=== PATIENT | female | born 1995 | race Two or more races ===

== ENCOUNTER 2016-11-18 17:24 | Emergency (ER) | payer MEDICAID ==
[2016-11-18 17:40] VITALS: TEMP 98.2
[2016-11-18 18:13] LABS: COLOR YELLOW; LEUKOCYTE ESTERASE,URINE 3+ (NEGATIVE); NITRITE,URINE NEGATIVE (NEGATIVE)
[2016-11-18 18:46] LABS: BACTERIA 1+ /hpf (NONE SEEN); MUCUS TRACE /lpf (NONE-1+); RBC,URINE 15-25 /hpf (0-3); WBC,URINE 50-182 /hpf (0-3)
--- NOTE | 2016-11-18 19:22 | EDPHY ---
H & P Time Seen by Provider: 11/18/16 18:16 HPI/ROS: CHIEF COMPLAINT: Abdominal pain, dysuria HISTORY OF PRESENT ILLNESS: 21-year-old female presents to the emergency department with abdominal pain that began this afternoon. The patient has had some dysuria, urgency and frequency with urination. The patient has had urinary tract infections in the past. No diarrhea. No fevers or chills. Last urinary tract infection was a few years ago. Her last menstrual period was 2 weeks ago and she denies . She denies chest pain or difficulty breathing. REVIEW OF SYSTEMS: Constitutional: No fever, no chills. Eyes: No double or blurry vision. ENT: No sore throat. Respiratory: No cough, no shortness of breath. Cardiac: No chest pain. Gastrointestinal: Abdominal pain as above. No vomiting or diarrhea. Genitourinary: dysuria. Musculoskeletal: No neck or back pain. Skin: No rashes. Neurological: No headache. Past Medical/Surgical History: Negative Social History: Smoking Status: Never smoked Physical Exam: General Appearance: Alert, no distress. Afebrile and nontoxic-appearing. Eyes: Pupils equal and round. Extraocular motions are all intact. ENT: Mouth: Mucous membranes moist. Respiratory: No wheezing, rhonchi, or rales, lungs are clear to auscultation. Cardiovascular: Regular rate and rhythm. Gastrointestinal: Abdomen is soft and nontender, no masses, no rebound or guarding, bowel sounds normal. No CVA tenderness bilaterally. Neurological: Alert and oriented x 3, cranial nerves II through XII grossly intact Skin: Warm and dry, no rashes. Musculoskeletal: Nontender to palpate along the cervical, thoracic or lumbar spine. Neck is supple. Extremities: Full range of motion and no peripheral edema. Psychiatric: Patient is oriented X 3, there is no agitation. Constitutional: Initial Vital Signs Temperature (C) 36.8 C 11/18/16 17:38 Heart Rate 95 11/18/16 17:38 Respiratory Rate 18 11/18/16 17:38 Blood Pressure 116/85 H 11/18/16 17:38 O2 Sat (%) 98 11/18/16 17:38 O2 Delivery Mode Room Air Allergies/Adverse Reactions: No Known Allergies Allergy (Verified 11/18/16 17:37) Home Medications: Medication Instructions Recorded Cephalexin [Keflex] 500 mg PO QID #28 cap 11/18/16 Lutera-28 Tablet 11/18/16 Phenazopyridine HCl [Pyridium] 200 mg PO Q8PRN PRN #6 tab 11/18/16 Medical Decision Making ED Course/Re-evaluation: 21-year-old female presents to the emergency department with abdominal pain and dysuria. Clinically I think this patient has urinary tract infection. Her urine cultures pending. She will be started on Keflex 500 mg four times daily for 1 week and was also given prescription for Pyridium. I do not think this patient requires IV antibiotics. She will be discharged home. She will call for the results of her urine culture in 48 hours. She was instructed to return if she developed back pain, fever, vomiting, or if she felt worse in any way. She was comfortable with this plan. Differential Diagnosis: Including but not limited to urinary tract infection, pyelonephritis, kidney stone, acute appendicitis - Data Points Laboratory Results: 11/18/16 11/18/16 18:00 16:40 Urine Color YELLOW Urine Appearance MODERATELY TURBID Urine pH 5.0 (5.0-7.5) Ur Specific [place] 1.008 (1.002-1.030) Urine Protein 2+ H (NEGATIVE) Urine Ketones NEGATIVE (NEGATIVE) Urine Blood 3+ H (NEGATIVE) Urine Nitrate NEGATIVE (NEGATIVE) Urine Bilirubin NEGATIVE (NEGATIVE) Urine Urobilinogen NEGATIVE EU EU (0.2-1.0) Ur Leukocyte Esterase 3+ H (NEGATIVE) Urine RBC 15-25 /hpf H /hpf (0-3) Urine WBC 50-182 /hpf H /hpf (0-3) Ur Epithelial Cells TRACE /lpf /lpf (NONE-1+) Urine Bacteria 1+ /hpf H /hpf (NONE SEEN) Urine Mucus TRACE /lpf /lpf (NONE-1+) Ur Culture Indicated? INDICATED H (NI) Urine Glucose NEGATIVE (NEGATIVE) Urine Test NEGATIVE Medications Given: Discontinued Medications Cephalexin HCl (Keflex) 500 mg PO EDNOW ONE PRN Reason: Protocol Stop: 11/18/16 19:25 Last Admin: 11/18/16 19:28 Dose: 500 mg Phenazopyridine HCl (Pyridium) 200 mg PO EDNOW ONE Stop: 11/18/16 19:25 Last Admin: 11/18/16 19:28 Dose: 200 mg Departure - Departure Disposition: Home, Routine, Self-Care Clinical Impression: Urinary tract infection Qualifiers: Urinary tract infection type: acute cystitis Hematuria presence: without hematuria Qualified Code(s): N30.00 - Acute cystitis without hematuria Condition: Good Instructions: Urinary Tract Infection in Women (ED) Additional Instructions: Keflex 500 mg 4 times daily for 1 week to recheck. Call [phone] for the results of your urine culture in 48 hours. Referrals: Yulia Amos PA [Primary Care Provider] - As per Instructions Prescriptions: Cephalexin [Keflex] 500 mg PO QID #28 cap Phenazopyridine HCl [Pyridium] 200 mg PO Q8PRN PRN #6 tab PRN Reason: P.r.n. dysuria
[2016-11-18] MEDS ORDERED: CEPHALEXIN 500 MG CAP PO ONE ×2 (19:24→19:25)
[2016-11-18] MEDS ORDERED: PHENAZOPYRIDINE HCL 200 MG TAB PO ONE (19:24)
[2016-11-18] MEDS ORDERED: PHENAZOPYRIDINE HCL 200 MG TAB ONE (19:25)
[2016-11-18 19:44] VITALS: BP 112/62; PULSE 84; RESP 16; O2SAT 96
== END 2016-11-18 19:43 | disposition home or self-care (01) ==
DX: N30.00 Acute cystitis without hematuria (principal); B96.20 Unspecified Escherichia coli [E. coli] as the cause of diseases classified elsewhere

== ENCOUNTER 2017-03-30 20:41 | Emergency (ER) | payer MEDICAID ==
[2017-03-30 20:46] VITALS: RESP 16; O2SAT 97
[2017-03-30] MEDS ORDERED: NS 1,000 ML IV ONE (21:02)
[2017-03-30] MEDS ORDERED: PROMETHAZINE HCL 25 MG/ML INJ IVP ONE (21:02)
--- NOTE | 2017-03-30 21:06 | EDPHY ---
H & P Stated Complaint: N/V, dizzy, sudden onset, prior Hx without Dx Time Seen by Provider: 03/30/17 21:02 HPI/ROS: HPI: This is a 21-year-old female who presents with Chief Complaint: N/V, dizzy, sudden onset, prior Hx without Dx Location: Body Quality: Nausea Duration: 15 minutes prior to arrival Signs and Symptoms: No fever, no body aches, no burning with urination, + lower abdominal pressure, + urinary frequency, no vaginal bleeding, no vaginal discharge, no neck stiffness, no headache, no abdominal pain, no diarrhea Timing: Sudden Severity: Moderate Context: Patient presents with sudden onset of nausea, 1 episode of vomiting and feeling dizzy. She denies the room spinning. She was sitting on the couch when the episode occurred. After further questioning she notes that she has some urinary hesitancy and frequency that started today. She is and is sexually active. She denies any vaginal discharge/bleeding. Last menstrual period was recent. She was eating and drinking well today. No family members are sick. A similar occurrence occurred recently she was seen in this ER and diagnosed with a urinary tract infection. Modifying Factors: Has not tried anything for the symptoms Comment: ROS: Constitutional: No fever, no chills, no weight loss Eyes: No blurred vision Respiratory: No shortness of breath, no cough Cardiovascular: No chest pain Gastrointestinal: + nausea, + vomiting no diarrhea Genitourinary: No dysuria Extremities: No myalgias Neurologic: No weakness, no numbness Skin: No rashes Hematologic: No bruising, no bleeding CONSTITUTIONAL: Tearful anxious well-appearing female, awake and alert , no obvious distress HEENT: Atraumatic and normocephalic, PERRL, EOMI. Tympanic membranes clear. Oropharynx clear, no exudate and moist pink mucosa. Airway patent. No lymphadenopathy. No meningismus. Cardiovascular: Normal S1/S2, tachycardia, regular rhythm, without murmur rub or gallop. PULMONARY/CHEST: Symmetrical and nontender. Clear to auscultation bilaterally. Good air movement. No accessory muscle usage. ABDOMEN: Soft, nondistended, nontender, no rebound, no guarding, no peritoneal signs, no masses or organomegaly. No CVAT. EXTREMITIES: 2/2 pulses, no deformities, no clubbing, no cyanosis or edema. NEUROLOGICAL: no focal neuro deficits. GCS 15. SKIN: Warm and dry, no erythema. no rash. Good capillary refill. Source: Patient Exam Limitations: No limitations - Personal History LMP (Females 10-55): 1-7 Days Ago Current Tetanus/Diphtheria Vaccine: Unsure - Medical/Surgical History Hx Asthma: No Hx Chronic Respiratory Disease: No Hx Diabetes: No Hx Cardiac Disease: No Hx Renal Disease: No Hx Cirrhosis: No Hx Alcoholism: No Hx HIV/AIDS: No Hx Splenectomy or Spleen Trauma: No Other PMH: PMHx: denies. PSHx: denies - Social History Smoking Status: Never smoked Additional Social History: . Constitutional: Initial Vital Signs Temperature (C) 37.4 C 03/30/17 20:43 Heart Rate 105 H 03/30/17 20:43 Respiratory Rate 16 03/30/17 20:43 Blood Pressure 127/80 H 03/30/17 20:43 O2 Sat (%) 97 03/30/17 20:43 O2 Delivery Mode Room Air Allergies/Adverse Reactions: No Known Allergies Allergy (Verified 11/18/16 17:37) Home Medications: Medication Instructions Recorded Lutera-28 Tablet 11/18/16 Medical Decision Making - Diagnostics Imaging Results: Imaging Impressions Abdomen Ultrasound 03/30/17 21:09 Impression: 1. No cholelithiasis, biliary dilation, hydronephrosis or free fluid. 2. Minimal hepatic steatosis. Findings discussed with Emergency Department physician sales and marketing assistant, Cora Hoyt at 03/30/2017 22:22. ED Course/Re-evaluation: Labs, urinalysis, IV fluids, IV medication, RUQ US ordered Abdominal exam is nonfocal and benign. Called by Radiology and ultrasound does not show cholecystitis, cholelithiasis, pancreatitis. UA is consistent with contamination; will send for urine culture due to symptoms ; discussed starting antibiotics prophylactically versus waiting for urine culture results. Patient requests to hold off on starting antibiotics. 2225: Re-evaluated patient and complete resolution of nausea and dizziness. Discussed this plan with the patient and she is agreeable and requesting to go home. Differential Diagnosis: Dizziness including but not limited to peripheral and central causes of vertigo , orthostatic causes including dehydration, and blood loss. Abdominal pain including but not limited to appendicitis, cholecystitis, gastritis, kidney stone and urinary tract infection. - Data Points Laboratory Results: Laboratory Results 03/30/17 21:00 03/30/17 21:00 03/30/17 03/30/17 03/30/17 21:05 21:00 21:00 WBC RBC Hgb Hct MCV MCH MCHC RDW Plt Count MPV Neut % (Auto) Lymph % (Auto) [place] % (Auto) Eos % (Auto) Baso % (Auto) Nucleat RBC Rel Count Absolute Neuts (auto) Absolute Lymphs (auto) Absolute Monos (auto) Absolute Eos (auto) Absolute Basos (auto) Absolute Nucleated RBC Immature Gran % Immature Gran # Sodium 139 mEq/L mEq/L (134-144) Potassium 3.9 mEq/L mEq/L (3.5-5.2) Chloride 105 mEq/L mEq/L (97-110) Carbon Dioxide 22 mEq/l mEq/l (22-31) Anion Gap 12 mEq/L mEq/L (8-16) BUN 12 mg/dL mg/dL (7-23) Creatinine 0.8 mg/dL mg/dL (0.6-1.0) Estimated GFR > 60 Glucose 76 mg/dL mg/dL (70-100) Calcium 10.4 mg/dL mg/dL (8.5-10.4) Total Bilirubin 0.4 mg/dL mg/dL (0.1-1.4) Conjugated Bilirubin 0.2 mg/dL mg/dL (0.0-0.5) Unconjugated Bilirubin 0.2 mg/dL mg/dL (0.0-1.1) AST 25 IU/L IU/L (14-46) ALT 28 IU/L IU/L (9-52) Alkaline Phosphatase 61 IU/L IU/L (38-126) Total Protein 8.1 g/dL g/dL (6.3-8.2) Albumin 4.5 g/dL g/dL (3.5-5.0) Lipase 97 IU/L IU/L (23-300) Beta HCG, Qual NEGATIVE Urine Color YELLOW Urine Appearance CLEAR Urine pH 7.0 (5.0-7.5) Ur Specific [place] 1.017 (1.002-1.030) Urine Protein 1+ H (NEGATIVE) Urine Ketones NEGATIVE (NEGATIVE) Urine Blood 2+ H (NEGATIVE) Urine Nitrate NEGATIVE (NEGATIVE) Urine Bilirubin NEGATIVE (NEGATIVE) Urine Urobilinogen NEGATIVE EU EU (0.2-1.0) Ur Leukocyte Esterase NEGATIVE (NEGATIVE) Urine RBC 5-10 /hpf H /hpf (0-3) Urine WBC 1-3 /hpf /hpf (0-3) Ur Epithelial Cells TRACE /lpf /lpf (NONE-1+) Hyaline Casts 1-5 /lpf /lpf (0-1) Urine Mucus TRACE /lpf /lpf (NONE-1+) Urine Glucose NEGATIVE (NEGATIVE) 03/30/17 21:00 WBC 10.89 10^3/uL H 10^3/uL (3.80-9.50) RBC 5.15 10^6/uL 10^6/uL (4.18-5.33) Hgb 15.7 g/dL g/dL (12.6-16.3) Hct 44.8 % % (38.0-47.0) MCV 87.0 fL fL (81.5-99.8) MCH 30.5 pg pg (27.9-34.1) MCHC 35.0 g/dL g/dL (32.4-36.7) RDW 11.9 % % (11.5-15.2) Plt Count 291 10^3/uL 10^3/uL (150-400) MPV 10.1 fL fL (8.7-11.7) Neut % (Auto) 47.7 % % (39.3-74.2) Lymph % (Auto) 44.7 % % (15.0-45.0) [place] % (Auto) 6.6 % % (4.5-13.0) Eos % (Auto) 0.4 % L % (0.6-7.6) Baso % (Auto) 0.4 % % (0.3-1.7) Nucleat RBC Rel Count 0.0 % % (0.0-0.2) Absolute Neuts (auto) 5.20 10^3/uL 10^3/uL (1.70-6.50) Absolute Lymphs (auto) 4.87 10^3/uL H 10^3/uL (1.00-3.00) Absolute Monos (auto) 0.72 10^3/uL 10^3/uL (0.30-0.80) Absolute Eos (auto) 0.04 10^3/uL 10^3/uL (0.03-0.40) Absolute Basos (auto) 0.04 10^3/uL 10^3/uL (0.02-0.10) Absolute Nucleated RBC 0.00 10^3/uL 10^3/uL (0-0.01) Immature Gran % 0.2 % % (0.0-1.1) Immature Gran # 0.02 10^3/uL 10^3/uL (0.00-0.10) Sodium Potassium Chloride Carbon Dioxide Anion Gap BUN Creatinine Estimated GFR Glucose Calcium Total Bilirubin Conjugated Bilirubin Unconjugated Bilirubin AST ALT Alkaline Phosphatase Total Protein Albumin Lipase Beta HCG, Qual Urine Color Urine Appearance Urine pH Ur Specific [place] Urine Protein Urine Ketones Urine Blood Urine Nitrate Urine Bilirubin Urine Urobilinogen Ur Leukocyte Esterase Urine RBC Urine WBC Ur Epithelial Cells Hyaline Casts Urine Mucus Urine Glucose Medications Given: Discontinued Medications Sodium Chloride (Ns) 1,000 mls @ 0 mls/hr IV EDNOW ONE; Wide Open PRN Reason: Protocol Stop: 03/30/17 21:03 Last Admin: 03/30/17 21:10 Dose: 1,000 mls Promethazine HCl (Phenergan) 12.5 mg IVP EDNOW ONE Stop: 03/30/17 21:03 Last Admin: 03/30/17 21:10 Dose: 12.5 mg Departure - Departure Disposition: Home, Routine, Self-Care Clinical Impression: Nausea, Dizziness Condition: Good Instructions: Acute Nausea and Vomiting (ED) Additional Instructions: Ultrasound did not show any signs of gallbladder disease. Your labs today including CBC and CMP were unremarkable. If symptoms persist, please follow-up with your primary care provider. If symptoms rapidly worsen, please return to the ER immediately. Referrals: [facility],. [Clinic] - As per Instructions
[2017-03-30 21:15] LABS: % IMMATURE GRANULYOCYTES 0.2 % (0.0-1.1); ABSOLUTE IMMATURE GRANULOCYTES 0.02 10^3/uL (0.00-0.10); ADD DIFF? NO; ADD MORPH? NO; ADD SCAN? NO; ATYPICAL LYMPHOCYTE FLAG 10 (0-99); FRAGMENT RBC FLAG 0 (0-99); HEMATOCRIT 44.8 % (38.0-47.0); HEMOGLOBIN 15.7 g/dL (12.6-16.3); LEFT SHIFT FLG 0 (0-99); LIPEMIA HEMOLYSIS FLAG 90 (0-99); MEAN CELL HEMOGLOBIN 30.5 pg (27.9-34.1); MEAN PLATELET VOLUME 10.1 fL (8.7-11.7); PLATELET CLUMPS FLAG 10 (0-99); PLATELET COUNT 291 10^3/uL (150-400); RED BLOOD CELL COUNT 5.15 10^6/uL (4.18-5.33); RED CELL DISTRIBUTION WIDTH 11.9 % (11.5-15.2)
[2017-03-30 21:17] LABS: COLOR YELLOW; LEUKOCYTE ESTERASE,URINE NEGATIVE (NEGATIVE); NITRITE,URINE NEGATIVE (NEGATIVE)
[2017-03-30 21:22] LABS: MUCUS TRACE /lpf (NONE-1+)
[2017-03-30 21:30] LABS: ALANINE AMINOTRANSFERASE 28 IU/L (9-52); ALBUMIN 4.5 g/dL (3.5-5.0); ALKALINE PHOSPHATASE 61 IU/L (38-126); ANION GAP 12 mEq/L (8-16); ASPARTATE AMINOTRANSFERASE 25 IU/L (14-46); BILIRUBIN,TOTAL 0.4 mg/dL (0.1-1.4); BILIRUBIN-CONJUGATED 0.2 mg/dL (0.0-0.5); BILIRUBIN-UNCONJUGATED 0.2 mg/dL (0.0-1.1); CALCIUM 10.4 mg/dL (8.5-10.4); CARBON DIOXIDE 22 mEq/l (22-31); CHLORIDE 105 mEq/L (97-110); CREATININE 0.8 mg/dL (0.6-1.0); GLOMERULAR FILTRATION RATE > 60; GLUCOSE 76 mg/dL (70-100); POTASSIUM 3.9 mEq/L (3.5-5.2); SODIUM 139 mEq/L (134-144); TOTAL PROTEIN 8.1 g/dL (6.3-8.2)
[2017-03-30 22:41] VITALS: BP 130/65; PULSE 69; TEMP 98.1
== END 2017-03-30 22:40 | disposition home or self-care (01) ==
DX: R42 Dizziness and giddiness (principal); R11.0 Nausea; E86.9 Volume depletion, unspecified
CPT/HCPCS: 96374; J2550